=== PATIENT | male | born 2000 | race Caucasian/White ===

== ENCOUNTER → 2020-05-17 15:33 | Outpatient (CLI) | payer MEDICAID, SELFPAY ==
--- NOTE | 2020-05-17 15:48 | MRI_ITS ---
STUDY: MRI LUMBAR SPINE WITHOUT CONTRAST REASON FOR EXAM: Male, 20 years old. hx myelomeningocele, eval for syrinx, tethering, F/U, no new complaintscomps from outside facility provided TECHNIQUE: Standardized fat and water weighted pulse sequences were obtained in the sagittal and axial planes. COMPARISON: 05/09/2019 FINDINGS: T12-L1: Normal endplates. Normal disc height, hydration and morphology. Normal bilateral facet joints. Normal central canal and bilateral lateral recesses. Normal bilateral intervertebral neural foramina. No evidence for acute fracture or subluxation. Posterior neural arch defects are noted at L5-S1 and S1 -2. Normal lumbar lordosis. There is no substantial scoliosis. Normal conus medullaris that terminates at L5 L1-2: Normal endplates. Normal disc height, hydration and morphology. Normal bilateral facet joints. Normal central canal and bilateral lateral recesses. Normal bilateral intervertebral neural foramina. L2-3: Normal endplates. Normal disc height, hydration and morphology. Normal bilateral facet joints. Normal central canal and bilateral lateral recesses. Normal bilateral intervertebral neural foramina. L3-4: Normal endplates. Normal disc height, hydration and morphology. Normal bilateral facet joints. Normal central canal and bilateral lateral recesses. Normal bilateral intervertebral neural foramina. L4-5: Normal endplates. Normal disc height, hydration and morphology. Normal bilateral facet joints. Normal central canal and bilateral lateral recesses. Normal bilateral intervertebral neural foramina. L5-S1: Normal endplates. Normal disc height, hydration and morphology. Normal bilateral facet joints. Normal central canal and bilateral lateral recesses. Normal bilateral intervertebral neural foramina. Normal visualized sacral ala. Normal visualized paraspinous soft tissue structures. MRI/Spine Lumbar (Routine) IMPRESSION: Findings consistent with spina bifida occulta.. Low-lying conus without evidence for tethering or epidural mass. No significant change since prior exam Electronically Signed: Lv Acevedo MD at 20:37 EDT , Service support ,
--- NOTE | 2020-05-17 15:48 | MRI_ITS ---
STUDY: MRI BRAIN WITHOUT CONTRAST REASON FOR EXAM: Male, 20 years old. hx myelomeningocele, ventriculoperitoneal shunt, eval for syrinx, f/u, no new complaints from patientcomparisons from outside facility provided TECHNIQUE: Standardized multiplanar fat and water weighted pulse sequences were obtained. COMPARISON: 05/09/2019 FINDINGS: Normal size of the ventricles and extra-axial spaces for the patient''s age. Normal white matter tracts of the supratentorial brain. Normal bilateral basal ganglia. Normal thalami. There is no extra-axial fluid accumulation. Normal flow voids within the major intracranial circulation suggesting patency by spin echo criteria. Normal sella turcica, pituitary gland, infundibular stalk, optic chiasm and hypothalamus. Normal tectal plate and pineal gland. Normal midbrain, [place] and medulla. 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 No definitive evidence for cervical syrinx Normal basal cisterns. Normal bilateral temporal bones. Normal bilateral internal auditory canals. No demonstrated orbital abnormality, within the constraints of a routine brain study. Normal visualized paranasal sinuses. Ventricular shunt is noted entering the skull through a junior hole in the right frontal bone with tip in the vicinity of the roof of the third ventricle.. Normal visualized soft tissue structures. Normal visualized upper cervical spine. No significant change since prior exam MRI/Brain without Contrast IMPRESSION: No evidence for obstructive hydrocephalus status post ventricular shunting. 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 Electronically Signed: Lv Acevedo MD at 20:17 EDT , Service support ,
--- NOTE | 2020-05-17 15:48 | MRI_ITS ---
STUDY: MRI CERVICAL SPINE WITHOUT CONTRAST REASON FOR EXAM: Male, 20 years old. hx myelomeningocele, eval for syrinx, tethering, F/U, no new complaints.comps from outside facility provided TECHNIQUE: Standardized fat and water weighted pulse sequences were obtained in the sagittal and axial planes. COMPARISON: None FINDINGS: Normal foramen magnum and brainstem-cervical cord junction. Normal craniovertebral junction. Normal anterior atlantoaxial articulation. Normal odontoid process. Normal cervical lordosis. Normal vertebral bodies and posterior osseous elements. C2-3: Normal endplates. Normal disc height, signal and morphology. Normal central canal and intervertebral neural foramina. C3-4: Normal endplates. Normal disc height, signal and tiny central disc protrusion. Normal central canal and intervertebral neural foramina. C4-5: Normal endplates. Normal disc height, signal and minor bulging of the disc with tiny right paracentral disc protrusion. Mild narrowing of the central canal. Normal bilateral neuroforamina C5-6: Normal endplates. Normal disc height, signal and tiny central disc protrusion.. Normal central canal and intervertebral neural foramina. C6-7: Normal endplates. Normal disc height, signal and minor bulging of the disc. Normal central canal and intervertebral neural foramina. C7-T1: Normal endplates. Normal disc height, signal and morphology. Normal central canal and intervertebral neural foramina. Normal cervical cord. Normal visualized soft tissue structures. No significant change since prior exam MRI/Spine Cervical (Routine) IMPRESSION: Mild multilevel disc disease most pronounced at C4-5 with mild narrowing the central canal but no evidence for cord compression.. No focal lesions within the cord Electronically Signed: Lv Acevedo MD at 20:21 EDT , Service support ,
--- NOTE | 2020-05-17 15:48 | MRI_ITS ---
STUDY: MRI THORACIC SPINE WITHOUT CONTRAST REASON FOR EXAM: Male, 20 years old. hx myelomeningocele, eval for syrinx, tethering, F/U, no new complaintscomps from outside facility provided TECHNIQUE: Standardized fat and water weighted pulse sequences were obtained in the sagittal and axial planes. COMPARISON: 05/09/2019. FINDINGS: Normal kyphosis of the thoracic spine. There is no substantial scoliosis. No evidence for acute fracture or other significant bony pathology. The disc space heights are well-maintained and there is normal hydration of the discs.. There is minimal bulging of the discs at T2-3 through T5-6 with minor central canal stenosis without cord compression. Normal visualized thoracic cord. Normal conus medullaris that terminates at T12-L1 The soft tissue structures are unremarkable. No significant change since prior exam MRI/Spine Thoracic (Routine) IMPRESSION: No evidence for acute fracture or other significant bony pathology. Minimal bulging of the discs at T2-3 through C5-6 with minor central canal stenosis but no cord compression. No focal lesions within the cord. Electronically Signed: Lv Acevedo MD at 20:28 EDT , Service support ,
== END ==
PROVIDERS: PCP Family Medicine
DX: Q05.9 Spina bifida, unspecified (principal); Z98.2 Presence of cerebrospinal fluid drainage device
CPT/HCPCS: 70551; 72141; 72146; 72148

== ENCOUNTER → 2020-08-04 17:30 | Outpatient (CLI) | payer MEDICAID, SELFPAY ==
--- NOTE | 2020-08-04 17:49 | MRI_ITS ---
STUDY: MRI LEFT KNEE REASON FOR EXAM: Male, 20 years old. Medial left knee pain. TECHNIQUE: Standardized fat and water weighted pulse sequences were obtained in all 3 orthogonal planes. COMPARISON: None. FINDINGS: Patellofemoral articular cartilage preserved. Medial compartment grade 2 cartilage loss. Lateral compartment articular cartilage preserved. Chronic Annabella-Schlatter''s disease with minimal edema at the proximal tibial insertion. No acute fracture line. No acute dislocation. No acute bone destruction. Markedly truncated appearance of the medial meniscus (coronal image 14 series 5) without articular surface component. Normal lateral meniscus. Chronic anterior cruciate ligament tear (sagittal image 22 series 3). Normal posterior cruciate limits. Mild patellar tendinosis without tear. Normal quadriceps tendon. Joint fluid physiologic. No popliteal cyst. No significant swelling. Normal medial collateral ligamentous complex (MCL). Normal distal semimembranosus, gracilis and semitendinosus tendons. Normal proximal tibiofibular articulation. Normal lateral collateral (fibular) ligament. Normal popliteus tendon. Normal biceps femoris tendon. Normal medial and lateral patellar retinaculum. Normal Hoffa''s fat pad. 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
== END ==
PROVIDERS: PCP Family Medicine
DX: S83.282A Other tear of lateral meniscus, current injury, left knee, initial encounter (principal)
CPT/HCPCS: 73721